=== PATIENT | female | born 1975 | race Caucasian/White ===

== ENCOUNTER 2018-02-06 09:47 | Emergency (ER) | payer OTHER ==
[~2018-02-06] VITALS: Ht 152.4 cm; Wt 68.0 kg
[2018-02-06] MEDS ORDERED: LOSARTAN POTASS50 MG (09:57)
== END 2018-02-06 13:13 | disposition home or self-care (01) ==
LOC: ER 09:47
DX: J06.9 Acute upper respiratory infection, unspecified (principal); J11.1 Influenza due to unidentified influenza virus with other respiratory manifestations

== ENCOUNTER 2020-10-17 11:47 | Inpatient (IN) | payer OTHER ==
[~2020-10-17] VITALS: Ht 154.9 cm; Wt 80.3 kg
[~2020-10-17 11:47] MED LIST: LOSARTAN POTASS50 MG
[2020-10-19] MEDS ORDERED: LEVALBUTER0.63 MG/3 (09:40)
[2020-10-19] MEDS ORDERED: CETIRIZINE HCL10 MG (09:40)
[2020-10-19] MEDS ORDERED: MONTELUKAST SOD10 MG (09:40)
[2020-10-19] MEDS ORDERED: LOSARTAN-HCTZ1 EAC2 (09:40)
[2020-10-19] MEDS ORDERED: FEXOFENADINE H180 MG (09:40)
[2020-10-19] MEDS ORDERED: BREO ELLIPTA 21 EACH (09:40)
[2020-10-19] MEDS ORDERED: PREDNISONE10 M2 (09:40)
== END 2020-10-19 20:19 | disposition home or self-care (01) | DRG 638 ==
LOC: ER 11:47 → MEDJ 21:15 → MEDI 10-18 18:40
PROVIDERS: ADMIT Internal Medicine; ATTEND Internal Medicine
PROC: 4A033R1 Measurement of Arterial Saturation, Peripheral, Percutaneous Approach (ICD-10-PCS; principal; 2020-10-17)
DX: E11.00 Type 2 diabetes mellitus with hyperosmolarity without nonketotic hyperglycemic-hyperosmolar coma (NKHHC) (principal); N17.9 Acute kidney failure, unspecified; E66.8 Other obesity; E86.0 Dehydration; J45.998 Other asthma; I10 Essential (primary) hypertension